=== PATIENT | female | born 1980 | race Caucasian/White ===

== ENCOUNTER 2023-09-25 14:20 | Emergency (ER) | payer MEDICARE, MEDICAID ==
[~2023-09-25] VITALS: Ht 165.1 cm; Wt 67.0 kg
[2023-09-25 14:43] VITALS: O2SAT 95
[2023-09-25] MEDS: BACITRACIN ZINC OINT UDPKT TOP ONE (18:00)
[2023-09-25] MEDS: LIDOCAINE HCL/PF 1% 10 MG/ML 5ML VIAL INFIL ONE (18:00)
[2023-09-25] MEDS: TETANUS, DIPHTHERIA, PERTUSSIS VAC/PF 0.5ML (>10YR OLD) IM ONE (18:00)
[2023-09-25 19:38] VITALS: BP 105/56; PULSE 88; RESP 20; TEMP 98
== END 2023-09-25 19:38 | disposition home or self-care (01) ==
LOC: ER 14:20
DX: S01.81XA Laceration without foreign body of other part of head, initial encounter (principal); Z98.890 Other specified postprocedural states; W18.30XA Fall on same level, unspecified, initial encounter; Y93.89 Activity, other specified; Y92.89 Other specified places as the place of occurrence of the external cause; Y99.8 Other external cause status
CPT/HCPCS: 99284; 70450; 70486; 72125; 12011; J3490

== ENCOUNTER 2023-11-04 14:17 | Emergency (ER) | payer MEDICARE, MEDICAID ==
[~2023-11-04] VITALS: Ht 154.9 cm; Wt 64.0 kg
[2023-11-04 14:25] VITALS: BP 138/77; O2SAT 100
[2023-11-04 14:26] VITALS: PULSE 71; RESP 18; TEMP 36.78072; O2SAT 99
[2023-11-04] MEDS ORDERED: HYDR453.3 TP (14:39)
[2023-11-04] MEDS ORDERED: CETI10CA11 MT (14:39)
== END 2023-11-04 16:13 | disposition home or self-care (01) ==
LOC: ER 14:17
DX: L30.9 Dermatitis, unspecified (principal)
CPT/HCPCS: 99282